=== PATIENT | female | born 1995 | race Caucasian/White ===

== ENCOUNTER 2020-12-24 07:56 | Day surgery (SDC) | payer OTHER ==
[~2020-12-24] VITALS: Ht 30.5 cm; Wt 0.5 kg
[2020-12-24] MEDS ORDERED: KETAMINE 50mg/ML 10ml Vial (500mg/10ml) IV ONE (07:57)
[2020-12-24] MEDS ORDERED: ceFAZolin 1GM/50ML 50 ML IV ONE (09:16)
[2020-12-24] MEDS ORDERED: fentaNYL CITRATE 100 MCG/2 ML VL ONE (09:30)
[2020-12-24] MEDS ORDERED: ONABOTULINUMTOXINA 200 UNIT INJ IM ONE ×2 (09:30)
[2020-12-24] MEDS ORDERED: MIDAZOLAM HCL 1MG/1ML-2 ML VIAL ONE (09:31)
[2020-12-24] MEDS ORDERED: PROPOFOL 10 MG/ML 20 ML IV ONE (09:42)
[2020-12-24 11:10] VITALS: BP 115/78
== END 2020-12-24 11:15 | disposition home or self-care (01) ==
LOC: SUR 07:56
PROVIDERS: ATTEND Urology
DX: N32.81 Overactive bladder (principal); F41.9 Anxiety disorder, unspecified; F32.9 Major depressive disorder, single episode, unspecified; Z20.822 Contact with and (suspected) exposure to COVID-19; Z98.890 Other specified postprocedural states; Z79.899 Other long term (current) drug therapy
CPT/HCPCS: 52287; J0585; J0690; J2250; J2704; J3010